=== PATIENT | female | born 1990 | race Caucasian/White ===

== ENCOUNTER 2016-09-14 16:36 | Emergency (ER) | payer BC ==
[~2016-09-14] VITALS: Ht 170.2 cm; Wt 74.0 kg
[~2016-09-14 16:36] MED LIST: LORT5TAB PO; Z.0.NO CURRENT MEDS
[2016-09-14 16:51] VITALS: BP 113/74; PULSE 91; RESP 18; TEMP 97.6; O2SAT 100
--- NOTE | 2016-09-14 17:15 | PD ---
HPI Chief Complaint: Seizure Time Seen by Provider: 17:11 Travel History International Travel<30 days: No Contact w/Intl Traveler<30days: No Traveled to known affect area: No History of Present Illness HPI 26-year-old female that presents to the ED for evaluation of seizure. Patient denies any history of seizures on herself. She does have a history of anxiety and depression and takes citalopram. Per patient she's been taking this for almost 2 months with no issues. Per patient she was at work today just sitting doing some paperwork and apparently is all she remembers. Per patient she woke up on the floor with police as well as ambulance and staff from the workplace around her. Per the back reported apparently patient had a full tonic seizure where she was shaking. Patient was initially postictal and was very aggressive and could not be redirected. Patient eventually calmed down after being restrained and does feel improved. Ever since being here. Patient has been calm and in no acute distress. She denies any history of seizures in herself but she does state that her mother who recently had a history of epilepsy. She takes no medications for anything else other than the citalopram. She denies any drug abuse. She does drink in location. She denies drinking today. Denies any head injury but does not remember what actually happened. Allergy to amoxicillin. Denies any changes in medication recently any new foods. No bleeding disorders. No pain other than a slight headache that is 3 out of 10. PFSH Past Medical History Hx Anticoagulant Therapy: Yes (ASPIRIN) Anxiety: Yes Cancer: No Cardiovascular Problems: No Endocrine: No Genitourinary: No Immune Disorder: No Musculoskeletal: No Neurologic: No Reproductive: No Respiratory: No Migraines: Yes ?: Not LMP: 09/14/16 : 0 Past Surgical History Oral Surgery: Yes (CLEFT PALETTE ) Pacemaker: No Other Surgery: Yes Social History Alcohol Use: Yes (COUPLE OF TIMES A WEEK) Tobacco Use: No Substance Use: No Allergies-Medications (Allergen,Severity, Reaction): Coded Allergies: Amoxil (Verified Allergy, Severe, 05/23/12) Reported Meds & Prescriptions Reported Meds & Active Scripts Active Reported Lortab 5/500 (Acetaminophen/Hydrocodone Bitart) 5 Mg/500 Mg Tab 1 Tab PO Q6- 8HPRN No Current Meds (Miscellaneous Medication) Misc Review of Systems General / Constitutional: No: Fever, Chills, Weight Gain, Weight Loss, Other Eyes: No: Diploplia, Blurred Vision, Photophobia, Drainage, Redness, Foreign Body Sensation, Pain, Tearing, Blind Spots, Visual changes, Blindness, Other HENT: Positive: Headaches, No: Vertigo, Lightheadedness, Sore Throat, Rhinitis , Rhinorrhea, Congestion, Nosebleed, Neck Stiffness, Neck Pain, Masses, Gingival Bleeding, Dental Difficulties, Ear Discharge, Earache, Other Cardiovascular: No: Chest Pain or Discomfort, Palpitations, Irregular Rhythm, Tachycardia, Diaphoresis, Syncope, Dyspnea on exertion, Varicosities, Edema, Cyanosis, Varicosities, Phlebitis, Claudication, Other Respiratory: No: Cough, Shortness of Breath, Wheezing, Sneezing, Orthopnea, Hemoptysis, Stridor, Night Sweats, Pleuritic Pain, Other Gastrointestinal: No: Nausea, Vomiting, Diarrhea, Abdominal Pain, Hematemesis, Hematochezia, Constipation, Changes in Bowel Habits, Indigestion, Dysphagia, Loss of Appetite, Other Genitourinary: No: Urgency, Frequency, Dysuria, Nocturia, Hematuria, Decreased Urinary Output, Oliguria, Hesitancy, Dribbling, Incontinence, Pelvic Pain, Flank Pain, Dyspareunia, Discharge, Dysmenorrhea, Menorrhagia, Metorrhagia, Vaginal Bleeding, Other Musculoskeletal: No: Myalgias, Arthralgias, Limited ROM, Weakness, Cramping, Edema, Pain, Atrophy, Other Skin: No Rash, No Itching, No Dryness, No Lumps, No Hives, No Change in Pigmentation, No Change in nails, No Alopecia, No Lesions, No Breast Lumps, No Breast Tenderness, No Breast Swelling, No Other Neurologic: Positive: Headache, Seizures, No: Weakness, Dizziness, Syncope, Focal Abnormalities, Coordination Problem, Tremor, Ataxia, Change in Mentation, Slurred Speech, Paresthesia, Incontinence, Sensory Disturbance, Other Psychiatric: Positive: Anxiety, Depression, No: Suicidal Ideations, Disorder of Thought, Mood Disorder, Substance Abuse, Homicidal Ideation, Other Endocrine: No: Heat Intolerance, Cold Intolerance, Polyuria, Polydipsia, Other Hematologic/Lymphatic: No: Easy Bruising, Lymph Node Enlargement, Other Physical Exam Narrative GENERAL: SKIN: Warm and dry. HEAD: Atraumatic. Normocephalic. EYES: Pupils equal and round 4 mm reactive to light and accommodation. No scleral icterus. No injection or drainage. ENT: No nasal bleeding or discharge. Mucous membranes pink and moist. Tongue is midline. No uvula deviation. NECK: Trachea midline. No JVD. CARDIOVASCULAR: Regular rate and rhythm. RESPIRATORY: No accessory muscle use. Clear to auscultation. Breath sounds equal bilaterally. GASTROINTESTINAL: Abdomen soft, non-tender, nondistended. Hepatic and splenic margins not palpable. MUSCULOSKELETAL: Extremities without clubbing, cyanosis, or edema. No obvious deformities. Full range of motion of the upper and lower extremities bilaterally. 2+ pulses bilaterally. NEUROLOGICAL: Awake and alert. No obvious cranial nerve deficits. Motor grossly within normal limits. Five out of 5 muscle strength in the arms and legs. Normal speech. PSYCHIATRIC: Appropriate mood and affect; insight and judgment normal. Data Data Last Documented VS Vital Signs Date Time Temp Pulse Resp B/P Pulse Ox O2 Delivery O2 Flow Rate FiO2 09/14/16 16:55 95 18 100 Room Air 09/14/16 16:51 97.6 113/74 Orders Electrocardiogram (09/14/16 16:50) Complete Blood Count With Diff (09/14/16 16:50) Basic Metabolic Panel (Bmp) (09/14/16 16:50) Urinalysis - C+S If Indicated (09/14/16 16:50) Magnesium (Mg) (09/14/16 16:50) Thyroid Stimulating Hormone (09/14/16 16:50) Ct Brain W/O Iv Contrast(Rout) (09/14/16 16:50) Drug Screen, Random Urine (09/14/16 16:50) Alcohol (Ethanol) (09/14/16 16:50) Ed Urine Pregnancytest Poc (09/14/16 16:50) Lactic Acid (09/14/16 16:50) Potassium Cl 40 Meq/30 Ml Liq (Kcl 40 Me (09/14/16 20:00) Labs Laboratory Tests Test 09/14/16 09/14/16 18:25 19:45 White Blood Count 10.0 TH/MM3 Red Blood Count 4.21 MIL/MM3 Hemoglobin 11.2 GM/DL Hematocrit 34.2 % Mean Corpuscular Volume 81.4 FL Mean Corpuscular Hemoglobin 26.5 PG Mean Corpuscular Hemoglobin 32.6 % Concent Red Cell Distribution Width 15.4 % Platelet Count 122 TH/MM3 Mean Platelet Volume 8.8 FL Neutrophils (%) (Auto) 83.6 % Lymphocytes (%) (Auto) 7.6 % Monocytes (%) (Auto) 8.2 % Eosinophils (%) (Auto) 0.2 % Basophils (%) (Auto) 0.4 % Neutrophils # (Auto) 8.4 TH/MM3 Lymphocytes # (Auto) 0.8 TH/MM3 Monocytes # (Auto) 0.8 TH/MM3 Eosinophils # (Auto) 0.0 TH/MM3 Basophils # (Auto) 0.0 TH/MM3 CBC Comment DIFF FINAL Differential Comment Sodium Level 141 MEQ/L Potassium Level 3.2 MEQ/L Chloride Level 108 MEQ/L Carbon Dioxide Level 19.2 MEQ/L Anion Gap 14 MEQ/L Blood Urea Nitrogen 19 MG/DL Creatinine 0.71 MG/DL Estimat Glomerular Filtration 100 ML/MIN Rate Random Glucose 84 MG/DL Lactic Acid Level 2.0 mmol/L Calcium Level 8.4 MG/DL Magnesium Level 2.0 MG/DL Thyroid Stimulating Hormone 1.830 uIU/ML 3rd Gen Ethyl Alcohol Level LESS THAN 3 MG/DL Urine Color LIGHT-YELLOW Urine Turbidity CLEAR Urine pH 6.5 Urine Specific [place] 1.014 Urine Protein TRACE mg/dL Urine Glucose (UA) NEG mg/dL Urine Ketones 10 mg/dL Urine Occult Blood SMALL Urine Nitrite NEG Urine Bilirubin NEG Urine Urobilinogen LESS THAN 2.0 MG/DL Urine Leukocyte Esterase NEG Urine RBC 2 /hpf Urine WBC 1 /hpf Urine Squamous Epithelial 4 /hpf Cells Urine Bacteria RARE /hpf Urine Hyaline Casts 1 /lpf Microscopic Urinalysis Comment CULT NOT INDICATED Urine Opiates Screen NEG Urine Barbiturates Screen NEG Urine Amphetamines Screen NEG Urine Benzodiazepines Screen NEG Urine Cocaine Screen NEG Urine Cannabinoids Screen NEG MDM Medical Decision Making Medical Screen Exam Complete: Yes Emergency Medical Condition: Yes Medical Record Reviewed: Yes Interpretation(s) CT head negative CBC & BMP Diagram 09/14/16 18:25 Lactic acid negative Tox negative. Differential Diagnosis Seizure versus seizure disorder versus syncope versus head injury versus substance abuse versus medication side effect Narrative Course 26-year-old female that presents to the ED for evaluation of seizure. Patient was properly examined and was found to have signs and symptoms consistent with appears to be possible seizure. No previous history in the past. Only one seizure. Patient had complete loss of consciousness as well as post ictal changes in mentation. Labs and imaging recommended. Labs and imaging showed slight hypokalemia. Patient was given 40 mEq of potassium. Labs and imaging were essentially unremarkable. Case was discussed in my attending Dr. Alejandre who evaluated the patient with me and who recommends discharge. Everything came back negative. She recommends against starting patient on anything for this time and recommendations for patient to follow with her neurologist who she already. For migraine headaches. She agrees and understands. See ED for worsening symptoms. Follow-up with PCP. No driving for 6 months until cleared by neurologist. Diagnosis Primary Impression: Seizure Patient Instructions: General Instructions Additional Instructions: F/u with neurologist. No driving for 6 months until cleared by neurologist. See ED if worst. Med/Other Pt SpecificInfo: No Change to Meds Disposition: 01 DISCHARGE HOME Condition: Stable Mac Noriega Sep 14, 2016 17:15
[2016-09-14 18:39] LABS: AUTOMATED NEUTROPHIL # 8.4 TH/MM3 (1.8-7.7); BASOPHIL % 0.4 % (0.0-2.0); EOSINOPHIL % 0.2 % (0.0-4.0); HEMATOCRIT 34.2 % (35.0-46.0); HEMO FLAGS DIFF FINAL; LYMPH % 7.6 % (9.0-44.0); LYMPHOCYTE # 0.8 TH/MM3 (1.0-4.8); MEAN CELL VOLUME 81.4 FL (80.0-100.0); MEAN CORPUSCULAR HEMOGLOBIN 26.5 PG (27.0-34.0); MEAN CORPUSCULAR HGB CONC 32.6 % (32.0-36.0); MONO % 8.2 % (0.0-8.0); NEUT % 83.6 % (16.0-70.0); PLATELET COUNT 122 TH/MM3 (150-450); RED BLOOD COUNT 4.21 MIL/MM3 (4.00-5.30); RED CELL DISTRIBUTION WIDTH 15.4 % (11.6-17.2)
[2016-09-14 18:53] LABS: ANION GAP 14 MEQ/L (5-15); BICARBONATE 19.2 MEQ/L (21.0-32.0); BLOOD UREA NITROGEN 19 MG/DL (7-18); CHLORIDE 108 MEQ/L (98-107); GLOMERULAR FILTRATION RATE 100 ML/MIN (>89); POTASSIUM 3.2 MEQ/L (3.5-5.1); SODIUM (NA) 141 MEQ/L (136-145)
--- NOTE | 2016-09-14 18:53 | PD ---
Data Data Last Documented VS Vital Signs Date Time Temp Pulse Resp B/P Pulse Ox O2 Delivery O2 Flow Rate FiO2 09/14/16 16:55 95 18 100 Room Air 09/14/16 16:51 97.6 113/74 Orders Electrocardiogram (09/14/16 16:50) Complete Blood Count With Diff (09/14/16 16:50) Basic Metabolic Panel (Bmp) (09/14/16 16:50) Urinalysis - C+S If Indicated (09/14/16 16:50) Magnesium (Mg) (09/14/16 16:50) Thyroid Stimulating Hormone (09/14/16 16:50) Ct Brain W/O Iv Contrast(Rout) (09/14/16 16:50) Drug Screen, Random Urine (09/14/16 16:50) Alcohol (Ethanol) (09/14/16 16:50) Ed Urine Pregnancytest Poc (09/14/16 16:50) Lactic Acid (09/14/16 16:50) Labs Laboratory Tests Test 09/14/16 18:25 White Blood Count 10.0 TH/MM3 Red Blood Count 4.21 MIL/MM3 Hemoglobin 11.2 GM/DL Hematocrit 34.2 % Mean Corpuscular Volume 81.4 FL Mean Corpuscular Hemoglobin 26.5 PG Mean Corpuscular Hemoglobin 32.6 % Concent Red Cell Distribution Width 15.4 % Platelet Count 122 TH/MM3 Mean Platelet Volume 8.8 FL Neutrophils (%) (Auto) 83.6 % Lymphocytes (%) (Auto) 7.6 % Monocytes (%) (Auto) 8.2 % Eosinophils (%) (Auto) 0.2 % Basophils (%) (Auto) 0.4 % Neutrophils # (Auto) 8.4 TH/MM3 Lymphocytes # (Auto) 0.8 TH/MM3 Monocytes # (Auto) 0.8 TH/MM3 Eosinophils # (Auto) 0.0 TH/MM3 Basophils # (Auto) 0.0 TH/MM3 CBC Comment DIFF FINAL Differential Comment MDM Supervised Visit with KOURTNEY: Yes Narrative Course The history, exam, and medical decision-making in the associated midlevel provider note were completed with my assistance. I reviewed and agree with the findings presented. I attest that I had a [id number] encounter with the patient on the same day, and personally performed and documented my assessment and findings in the medical record. *My assessment and Findings: This is a 26 year old female who presents to the emergency department with a witnessed seizure while she was at work. She's never had a seizure before. Labs and CT will be obtained. If there reassuring I think she can follow-up with her neurologist him she's already established with because of a history of migraines. I did instruct her not to drive, swim, or do anything dangerous until she follows up with her neurologist. Abigail Alejandre MD Sep 14, 2016 18:52
[2016-09-14] MEDS ORDERED: POTASSIUM CL 40 MEQ/30 ML LIQ UDC PO ONE (20:00)
[2016-09-14 20:02] LABS: BACTERIA, URINE RARE /hpf; BLOOD, URINE SMALL (NEG); COMMENT (UR) CULT NOT INDICATED; CULTURE IF INDICATED CULT NOT INDICATED; GLUCOSE,URINE NEG (NEG); HYALINE CAST, URINE 1 /lpf (RARE); KETONE, URINE 10 mg/dL (NEG); NITRITE,URINE NEG (NEG); PH, URINE 6.5 (5.0-8.5); SQUAMOUS EPITHELIAL CELL URINE 4 /hpf (0-5); URINE COLOR LIGHT-YELLOW (YELLW/STRAW)
[2016-09-14 20:06] LABS: AMPHETAMINE, URINE NEG (NEG); BARBITURATES, URINE NEG (NEG); COCAINE, URINE NEG (NEG)
--- NOTE | 2016-09-14 21:01 | RADRPT ---
EXAM DATE/TIME: 09/14/2016 20:18 [facility] COMPARISON: No previous studies available for comparison. INDICATIONS : Altered mental status; possible seizure. RADIATION DOSE: 37.32 CTDIvol (mGy) MEDICAL HISTORY : None SURGICAL HISTORY : None. ENCOUNTER: Initial ACUITY: 1 day PAIN SCALE: 0/10 LOCATION: cranial TECHNIQUE: Multiple contiguous axial images were obtained of the head. Using automated exposure control and adj ustment of the mA and/or kV according to patient size, radiation dose was kept as low as reasonably a chievable to obtain optimal diagnostic quality images. FINDINGS: There is no evidence for intracranial hemorrhage, mass effect, mass lesions, edema, or extra-axial fl uid collections. The visualized bony structures appear intact. The ventricles are normal size for t he patient's age. There are no signs of acute infarction for technique. CONCLUSION: Unremarkable study. Deacon Gustafson MD on September 14, 2016 at 20:58 Board Certified Radiologist. This report was verified electronically.
[2016-09-14] MEDS ORDERED: LEVE500 PO (22:23)
[2016-09-14 22:24] VITALS: BP 135/77
--- NOTE | 2016-09-15 23:20 | EKG ---
Date Performed: 09/14/2016 Time Performed: 18:42:22 PTAGE: 26 years EKG: Sinus rhythm BORDERLINE ECG NO PREVIOUS TRACING DOCTOR: Sammy Bhakta Interpretating Date/Time 09/15/2016 23:16:48
== END 2016-09-14 22:00 | disposition home or self-care (01) ==
LOC: NEPE 16:36
DX: R56.9 Unspecified convulsions (principal); F32.9 Major depressive disorder, single episode, unspecified; F41.9 Anxiety disorder, unspecified
CPT/HCPCS: 70450; 80048; 80307; 80320; 81001; 83605; 83735; 84443; 84703; 85025; 93005